=== PATIENT | male | born 1955 | race Caucasian/White ===

== ENCOUNTER 2017-09-25 16:45 | Emergency (ER) | payer OTHER ==
--- NOTE | 2017-09-25 18:59 | RAD REPORT ---
EXAM DESCRIPTION: CT - Stone Protocol - 09/25/2017 6:43 pm CLINICAL HISTORY: Left flank pain COMPARISON: None. TECHNIQUE: Axial 5 mm thick images were obtained without oral or IV contrast. The [id number] span s the entirety of the system partially obscuring uppermost abdomen and lung bases. All CT scans are performed using dose optimization technique as appropriate and may include automated exposure control or mA/KV adjustment according to patient size. FINDINGS: Mild left-sided hydronephrosis is present secondary to a 2 millimeter distal ureteral ston e approximately 2 cm from the UVJ. There is perinephric stranding on the left as well as left renal p arenchymal edema. No additional nonobstructing calculi on the left. No right-sided hydronephrosis or obstructing calculus. No suspicious renal masses. Isodense masses and pyelonephritis are not excluded on a stone protocol CT scan. Urinary bladder is contracted limiting detail. No bladder calculi. Liver shows prominent left lobe and caudate lobe. Liver contour is nodular. No focal liver lesion ramsey ntifiable. Assessment is limited in the absence of contrast. Spleen is normal in size with no focal a bnormality. No pancreatic process suspected. No gallbladder or biliary tree abnormality identified. N o significant adrenal finding. No suspicious bowel findings. A few of the distal small bowel loops are prominent but this is nonspec ific. There is diverticulosis without diverticulitis. No mass or bulky lymphadenopathy. Fat extends into the origin of each inguinal canal. No free air, fr ee fluid or inflammatory stranding. No significant bony abnormality. Disc and bony degenerative changes are present. Vascular calcificati ons are seen. IMPRESSION: Mild left-sided hydronephrosis secondary to a 2 millimeter distal ureteral calculus. Obs tructing stone is approximately 2 cm from the bladder. Isodense masses and pyelonephritis are not excluded on stone protocol technique. Suspected cirrhotic change in the liver. No focal lesions seen on noncontrast imaging.
[2017-09-25] MEDS ORDERED: ONDANSETRON 4 MG/2 ML VIAL ONE (19:20)
[2017-09-25] MEDS ORDERED: TAMSULOSIN 0.4 MG SR CAP ONE (19:20)
[2017-09-25] MEDS ORDERED: CEFTRIAXONE/SWI 1gm 1 GM/10 ML SYR ONE (19:20)
[2017-09-25] MEDS ORDERED: FENTANYL CITR 100 MCG/2 ML ONE (19:20)
[2017-09-25 19:22] LABS: Absolute Monocytes 1.1 K/uL (0.1-1.3); Absolute Neutrophil 10.9 K/uL (1.8-8.0); Basophils % 0.4 % (0-1.3); Eosinophils % 0.2 % (0-4.4); Hematocrit 44.5 % (39.6-49.0); Lymphocytes % 7.6 % (15.3-44.8); MCH 32.4 pg (27.0-35.0); MCV 95.9 fL (80-100); MPV 8.1 fL (7.6-11.3); Monocytes % 8.2 % (3.3-12.3); RBC Red Blood Cell Count 4.64 M/uL (4.33-5.43)
[2017-09-25 19:33] LABS: Glomerular Filtration Rate > 60 mL/min (>60)
[2017-09-25 19:34] LABS: Potassium 3.9 mEq/L (3.6-5.0)
--- NOTE | 2017-09-25 19:34 | EDPHYS ---
Physician Documentation [facility] Name: Jeremy Hood Age: 62 yrs Sex: Male : 1955 Arrival Date: 09/25/2017 Time: 16:50 Bed 24 Private MD: ED Physician Quang Garcia HPI: 09/25 18:22 This 62 yrs old Male presents to ER via Ambulatory with complaints of Flank kemar Pain, Abdominal Pain. 18:22 The patient complains of pain in the left low back and left mid back. The pain kemar radiates. Onset: The symptoms/episode began/occurred 1 day(s) ago. Modifying factors: The symptoms are alleviated by nothing. the symptoms are aggravated by nothing. Associated signs and symptoms: The patient has no apparent associated signs or symptoms. Severity of pain: At its worst the pain was mild in the emergency department the pain is unchanged. Historical: - Allergies: 17:01 No Known Allergies; hj - Home Meds: 17:01 aspirin 81 mg Oral TbEC 1 tab once daily [Active]; carvedilol 3.125 mg oral tab 1 tab hj daily [Active]; Plavix 75 mg Oral tab 1 tab once daily [Active]; lisinopril 2.5 mg Oral tab 1 tab once daily [Active]; melatonin 5 mg Oral cap [Active]; simvastatin 40 mg Oral tab 1 tab once daily [Active]; omeprazole 20 mg Oral cpDR 1 cap once daily [Active]; Xifaxan 550 mg oral tab 1 tab daily [Active]; - PMHx: 17:01 Kidney stones; CHF; Myocardial infarction; hj - PSHx: 17:01 Hernia repair; hj - Immunization history:: Adult Immunizations up to date. - Social history:: Smoking status: Patient uses tobacco products, smokes one-half pack cigarettes per day. ROS: 18:23 Constitutional: Negative for fever, chills, and weight loss, Eyes: Negative for injury, kemar pain, redness, and discharge, ENT: Negative for injury, pain, and discharge, Neck: Negative for injury, pain, and swelling, Cardiovascular: Negative for chest pain, palpitations, and edema, Respiratory: Negative for shortness of breath, cough, wheezing, and pleuritic chest pain, : Negative for injury, bleeding, discharge, and swelling, MS/Extremity: Negative for injury and deformity, Skin: Negative for injury, rash, and discoloration, Neuro: Negative for headache, weakness, numbness, tingling, and seizure, Psych: Negative for depression, anxiety, suicide ideation, homicidal ideation, and hallucinations, Allergy/Immunology: Negative for hives, rash, and allergies, Endocrine: Negative for neck swelling, polydipsia, polyuria, polyphagia, and marked weight changes, Hematologic/Lymphatic: Negative for swollen nodes, abnormal bleeding, and unusual bruising. 18:23 Abdomen/GI: Positive for abdominal pain, of the anterior aspect of left lateral abdomen, posterior aspect of left lateral abdomen and left lower quadrant. Exam: 18:23 Constitutional: This is a well developed, well nourished patient who is awake, alert, kemar and in no acute distress. Head/Face: Normocephalic, atraumatic. Eyes: Pupils equal round and reactive to light, extra-ocular motions intact. Lids and lashes normal. Conjunctiva and sclera are non-icteric and not injected. Cornea within normal limits. Periorbital areas with no swelling, redness, or edema. ENT: Nares patent. No nasal discharge, no septal abnormalities noted. Tympanic membranes are normal and external auditory canals are clear. Oropharynx with no redness, swelling, or masses, exudates, or evidence of obstruction, uvula midline. Mucous membranes moist. Neck: Trachea midline, no thyromegaly or masses palpated, and no cervical lymphadenopathy. Supple, full range of motion without nuchal rigidity, or vertebral point tenderness. No Meningismus. Chest/axilla: Normal chest wall appearance and motion. Nontender with no deformity. No lesions are appreciated. Cardiovascular: Regular rate and rhythm with a normal S1 and S2. No gallops, murmurs, or rubs. Normal PMI, no JVD. No pulse deficits. Respiratory: Lungs have equal breath sounds bilaterally, clear to auscultation and percussion. No rales, rhonchi or wheezes noted. No increased work of breathing, no retractions or nasal flaring. Abdomen/GI: Soft, non-tender, with normal bowel sounds. No distension or tympany. No guarding or rebound. No evidence of tenderness throughout. Male : Normal genitalia with no discharge or lesions. Skin: Warm, dry with normal turgor. Normal color with no rashes, no lesions, and no evidence of cellulitis. MS/ Extremity: Pulses equal, no cyanosis. Neurovascular intact. Full, normal range of motion. Neuro: Awake and alert, GCS 15, oriented to person, place, time, and situation. Cranial nerves II-XII grossly intact. Motor strength 5/5 in all extremities. Sensory grossly intact. Cerebellar exam normal. Normal gait. Psych: Awake, alert, with orientation to person, place and time. Behavior, mood, and affect are within normal limits. 18:23 Back: pain, that is mild, that is moderate, ROM is normal, normal spinal alignment noted, CVA tenderness, is absent, vertebral tenderness, is not appreciated, muscle spasm, is not present. Vital Signs: 17:01 BP 150 / 100; Pulse 85; Resp 18; Temp 97.1; Pulse Ox 98% on R/A; Weight 68.04 kg; hj Height 5 ft. 9 in. (175.26 cm); Pain 10/10; 18:00 BP 137 / 76; Pulse 56; Resp 18; Pulse Ox 100% on R/A; tl3 20:18 BP 144 / 80; Pulse 56; Resp 16; Pulse Ox 100% ; tl3 20:45 BP 113 / 74; Pulse 56; Resp 16; Pulse Ox 99% on R/A; tl3 17:01 Body Mass Index 22.15 (68.04 kg, 175.26 cm) MDM: 18:04 Patient medically screened. [facility] 18:24 Data reviewed: vital signs, nurses notes, lab test result(s), radiologic studies, CT kemar scan, plain films. 09/25 18:22 Order name: Amylase, Serum; Complete Time: 20:03 [facility] 09/25 18:22 Order name: Basic Metabolic Panel; Complete Time: 20:03 [facility] 09/25 18:22 Order name: CBC with Diff; Complete Time: 20:03 [facility] 09/25 18:22 Order name: Creatinine for Radiology; Complete Time: 20:03 [facility] 09/25 18:22 Order name: Hepatic Function; Complete Time: 20:03 [facility] 09/25 18:22 Order name: Lipase; Complete Time: 20:03 [facility] 09/25 18:22 Order name: Chest Single View XRAY; Complete Time: 20:03 [facility] 09/25 18:22 Order name: CT Stone Protocol; Complete Time: 19:32 [facility] 09/25 19:23 Order name: Urine Dipstick--Ancillary (enter results) 2 09/25 18:22 Order name: IV Saline Lock; Complete Time: 20:50 [facility] 09/25 18:22 Order name: Labs collected and sent; Complete Time: 20:50 [facility] 09/25 18:22 Order name: Urine Dipstick-Ancillary (obtain specimen); Complete Time: 20:50 [facility] Administered Medications: 19:35 Drug: Rocephin - (cefTRIAXone) 1 grams {Note: IVP over 5 minutes.} Route: IVPB; Infused tl3 Over: 30 mins; Site: right forearm; Delivery: Primary tubing; 19:46 Follow up: IV Status: Completed infusion; IV Intake: 20ml tl3 19:35 Drug: Flomax 0.4 mg Route: PO; tl3 19:45 Follow up: Response: No adverse reaction tl3 19:36 Drug: fentaNYL (PF) 50 mcg Route: IVP; Infused Over: 3 mins; Site: right forearm; tl3 19:46 Follow up: Response: No adverse reaction; Pain is decreased tl3 19:36 Drug: Zofran 4 mg Route: IVP; Infused Over: 3 mins; Site: right forearm; tl3 19:46 Follow up: Response: No adverse reaction tl3 20:17 Drug: NS 0.9% 500 ml Route: IV; Rate: bolus; Site: right forearm; Delivery: Primary tl3 tubing; 20:49 Follow up: IV Status: Completed infusion; IV Intake: 500ml tl3 20:17 Drug: TORadol 30 mg Route: IVP; Infused Over: 3 mins; Site: right forearm; tl3 20:48 Follow up: Response: No adverse reaction; Pain is decreased tl3 20:17 Drug: fentaNYL (PF) 25 mcg Route: IVP; Site: right forearm; tl3 20:48 Follow up: Response: No adverse reaction; Pain is decreased tl3 Disposition: 09/25/17 19:33 Discharged to Home. Impression: Abdominal tenderness, Hydronephrosis with renal and ureteral calculous obstruction. - Condition is Stable. - Discharge Instructions: Abdominal Pain, Adult, Kidney Stones, Kidney Stones, [id number], Abdominal Pain, Adult, [id number], Hydronephrosis, Dietary Guidelines to Help Prevent Kidney Stones. - Prescriptions for Cipro 250 mg Oral Tablet - take 1 tablet by ORAL route every 12 hours; 14 tablet. Tylenol- Codeine #3 300-30 mg Oral Tablet - take 2 tablet by ORAL route every 6 hours As needed; 30 tablet. Zofran 4 mg Oral Tablet - take 1 tablet by ORAL route every 12 hours As needed; 20 tablet. Flomax 0.4 mg Oral Capsule, Sust. Release 24 hr - take 1 capsule by ORAL route once daily 1/2 hour following the same meal each day; 30 capsule. - Medication Reconciliation Form, Thank You Letter, Antibiotic Education, Prescription Opioid Use form. - Follow up: Private Physician; When: 2 - 3 days; Reason: Recheck today's complaints, Continuance of care, Re-evaluation by your physician. Follow up: Sheron Mc; When: As needed; Reason: Recheck today's complaints, Re-evaluation by your physician. - Problem is new. - Symptoms have improved. Signatures: Dispatcher [employer] Quang Arriola MD MD cha Joaquin, Henry, RN RN Ashley Plascencia RN RN tl3
--- NOTE | 2017-09-25 19:34 | ER ---
Nurse's Notes [facility] Name: Jeremy Hood Age: 62 yrs Sex: Male : 1955 Arrival Date: 09/25/2017 Time: 16:50 Bed 24 Private MD: Diagnosis: Abdominal tenderness;Hydronephrosis with renal and ureteral calculous obstruction Presentation: 09/25 16:56 Presenting complaint: Patient states: i have this worse pain on my L flank area, and hj then the pain moves to my groin; hx of kidney stones; reports nausea; and reports dizziness; denies fever and reports chills;. Transition of care: patient was not received from another setting of care. Onset of symptoms was September 25, 2017. Care prior to arrival: None. 16:56 Method Of Arrival: Ambulatory 16:56 Acuity: KENN 3 hj Triage Assessment: 17:01 General: Appears in no apparent distress. uncomfortable, Behavior is calm, cooperative, hj appropriate for age. Pain: Complains of pain in left low back. GI: Reports upper abdominal pain, nausea. Historical: - Allergies: 17:01 No Known Allergies; hj - Home Meds: 17:01 aspirin 81 mg Oral TbEC 1 tab once daily [Active]; carvedilol 3.125 mg oral tab 1 tab hj daily [Active]; Plavix 75 mg Oral tab 1 tab once daily [Active]; lisinopril 2.5 mg Oral tab 1 tab once daily [Active]; melatonin 5 mg Oral cap [Active]; simvastatin 40 mg Oral tab 1 tab once daily [Active]; omeprazole 20 mg Oral cpDR 1 cap once daily [Active]; Xifaxan 550 mg oral tab 1 tab daily [Active]; - PMHx: 17:01 Kidney stones; CHF; Myocardial infarction; hj - PSHx: 17:01 Hernia repair; hj - Immunization history:: Adult Immunizations up to date. - Social history:: Smoking status: Patient uses tobacco products, smokes one-half pack cigarettes per day. Screenin:00 Abuse screen: Denies threats or abuse. Nutritional screening: No deficits noted. tl3 Tuberculosis screening: No symptoms or risk factors identified. Fall Risk None identified. Assessment: 17:01 GI: Bowel sounds Abd is soft. hj 18:00 General: Appears uncomfortable, slender, well groomed, well developed, well nourished, tl3 Behavior is cooperative, appropriate for age, restless. Pain: Complains of pain in left lower quadrant and posterior aspect of left lateral abdomen and anterior aspect of left lateral abdomen and left mid back Pain currently is 10 out of 10 on a pain scale. Neuro: Level of Consciousness is awake, alert, obeys commands, Oriented to person, place, time, situation, Appropriate for age. Cardiovascular: Heart tones S1 S2 present. Respiratory: Airway is patent Trachea midline Respiratory effort is even, unlabored, Respiratory pattern is regular, symmetrical, Breath sounds are clear bilaterally. GI: Bowel sounds present X 4 quads. : No signs and/or symptoms were reported regarding the genitourinary system. EENT: No signs and/or symptoms were reported regarding the EENT system. Derm: No signs and/or symptoms reported regarding the dermatologic system. Musculoskeletal: No signs and/or symptoms reported regarding the musculoskeletal system. 20:18 Reassessment: Patient appears in no apparent distress at this time. No changes from tl3 previously documented assessment. Patient and/or family updated on plan of care and expected duration. Pain level reassessed. Patient is alert, oriented x 3, equal unlabored respirations, skin warm/dry/pink. pt more comfortable after pain meds. 20:45 Reassessment: Patient appears in no apparent distress at this time. No changes from tl3 previously documented assessment. Patient and/or family updated on plan of care and expected duration. Pain level reassessed. Patient is alert, oriented x 3, equal unlabored respirations, skin warm/dry/pink. pt resting. 21:14 Reassessment: Patient appears in no apparent distress at this time. No changes from tl3 previously documented assessment. Patient and/or family updated on plan of care and expected duration. Pain level reassessed. Patient is alert, oriented x 3, equal unlabored respirations, skin warm/dry/pink. Vital Signs: 17:01 BP 150 / 100; Pulse 85; Resp 18; Temp 97.1; Pulse Ox 98% on R/A; Weight 68.04 kg; hj Height 5 ft. 9 in. (175.26 cm); Pain 10/10; 18:00 BP 137 / 76; Pulse 56; Resp 18; Pulse Ox 100% on R/A; tl3 20:18 BP 144 / 80; Pulse 56; Resp 16; Pulse Ox 100% ; tl3 20:45 BP 113 / 74; Pulse 56; Resp 16; Pulse Ox 99% on R/A; tl3 17:01 Body Mass Index 22.15 (68.04 kg, 175.26 cm) ED Course: 16:50 Patient arrived in ED. rg4 16:58 Triage completed. hj 17:01 Arm band placed on right wrist. hj 18:00 Pulse ox on. NIBP on. Door closed. Lights dimmed. Warm blanket given. tl3 18:00 No provider procedures requiring assistance completed. tl3 18:04 Quang Garcia MD is Attending Physician. kemar 18:[address] co 18:42 Ashley Plascencia, ANGY is Primary Nurse. tl3 18:43 CT completed. Patient tolerated procedure well. Patient moved back from CT. nj 18:43 CT Stone Protocol In Process Unspecified. EDMS 18:48 Chest Single View XRAY In Process Unspecified. EDMS 19:08 Patient has correct armband on for positive identification. Placed in gown. Bed in low tl3 position. Call light in reach. Side rails up X 1. Adult w/ patient. 19:08 Initial lab(s) drawn, by nc, sent to lab. Inserted saline lock: 20 gauge in right tl3 antecubital area, using aseptic technique. Blood collected. 19:33 Sheron Mc MD is Referral Physician. [facility] 21:14 IV discontinued, intact, bleeding controlled, No redness/swelling at site. Pressure tl3 dressing applied. Administered Medications: 19:35 Drug: Rocephin - (cefTRIAXone) 1 grams {Note: IVP over 5 minutes.} Route: IVPB; Infused tl3 Over: 30 mins; Site: right forearm; Delivery: Primary tubing; 19:46 Follow up: IV Status: Completed infusion; IV Intake: 20ml tl3 19:35 Drug: Flomax 0.4 mg Route: PO; tl3 19:45 Follow up: Response: No adverse reaction tl3 19:36 Drug: fentaNYL (PF) 50 mcg Route: IVP; Infused Over: 3 mins; Site: right forearm; tl3 19:46 Follow up: Response: No adverse reaction; Pain is decreased tl3 19:36 Drug: Zofran 4 mg Route: IVP; Infused Over: 3 mins; Site: right forearm; tl3 19:46 Follow up: Response: No adverse reaction tl3 20:17 Drug: NS 0.9% 500 ml Route: IV; Rate: bolus; Site: right forearm; Delivery: Primary tl3 tubing; 20:49 Follow up: IV Status: Completed infusion; IV Intake: 500ml tl3 20:17 Drug: TORadol 30 mg Route: IVP; Infused Over: 3 mins; Site: right forearm; tl3 20:48 Follow up: Response: No adverse reaction; Pain is decreased tl3 20:17 Drug: fentaNYL (PF) 25 mcg Route: IVP; Site: right forearm; tl3 20:48 Follow up: Response: No adverse reaction; Pain is decreased tl3 Intake: 19:46 IV: 20ml; Total: 20ml. tl3 20:49 IV: 500ml; Total: 520ml. tl3 Outcome: 19:33 Discharge ordered by . kemar 21:14 Discharged to home ambulatory. tl3 21:14 Condition: good 21:14 Discharge instructions given to patient, family, Instructed on discharge instructions, follow up and referral plans. medication usage, Demonstrated understanding of instructions, follow-up care, medications, Prescriptions given X 4. 21:16 Patient left the ED. tl3 Signatures: Dispatcher [employer] EDMS Quang Garcia MD MD cha Joaquin, Henry RN Irma Mason4 Alfonso Gamez Tammy, RN RN tl3 Corrections: (The following items were deleted from the chart) 17:03 17:01 Pulse 85bpm; Resp 18bpm; Pulse Ox 98% RA; Temp 97.1F; 68.04 kg; Height 5 ft. 9 hj in.; BMI: 22.1; Pain 10/10; hj
[2017-09-25 19:40] LABS: Albumin 4.7 g/dL (3.2-5.5); Bilirubin Direct 0.2 mg/dL (0-0.2); Bilirubin Total 1.2 mg/dL (0.3-1.2); Protein, Total 8.3 g/dL (6.0-8.3)
--- NOTE | 2017-09-25 20:00 | RAD REPORT ---
EXAM DESCRIPTION: RAD - Chest Single View - 09/25/2017 6:52 pm CLINICAL HISTORY: Abdominal pain, flank pain COMPARISON: None. TECHNIQUE: AP portable chest image was obtained 1839 hours . FINDINGS: Lungs are clear. Heart and vasculature are normal. No measurable pleural effusion and no p neumothorax. No gross bony abnormality seen. No acute aortic findings suspected. IMPRESSION: No acute cardiopulmonary process.
[2017-09-25] MEDS ORDERED: NA CHLORIDE 0.9% 500 ML ONE (20:04)
[2017-09-25] MEDS ORDERED: KETOROLAC 30 MG/ML INJ ONE (20:05)
[2017-09-25 21:03] LABS: Urine Blood 2+ (NEG); Urine Glucose NEGATIVE (NEG); Urine Protein 2+ (NEG); Urine Specific Gravity >1.030 (1.005-1.030); Urine pH 5.5 (5.0-7.0)
== END 2017-09-25 21:16 | disposition home or self-care (01) ==
LOC: ER 16:45
DX: N13.2 Hydronephrosis with renal and ureteral calculous obstruction (principal); I50.9 Heart failure, unspecified; I25.2 Old myocardial infarction; F17.210 Nicotine dependence, cigarettes, uncomplicated; Z79.82 Long term (current) use of aspirin; Z79.01 Long term (current) use of anticoagulants
CPT/HCPCS: 36415; 71045; 74176; 76377; 80048; 80076; 81003; 82150; 83690; 85025; 96361; 96374; 96375; 99284; J0696; J2405; J3010